=== PATIENT | male | born 1990 | race Two or more races ===

== ENCOUNTER 2019-05-11 02:15 | Emergency (ER) | payer SELFPAY ==
[~2019-05-11] VITALS: Ht 182.9 cm; Wt 63.5 kg
[2019-05-11 02:16] VITALS: Ht 182.9 cm; Wt 63.5 kg
[2019-05-11 03:56] LABS: BASOPHIL % 0.9 % (0-2); PLATELET COUNT 258 x10^3mcL (130-400)
[2019-05-11 04:13] LABS: CALCIUM 8.1 mg/dL (8.5-10.1); CARBON DIOXIDE 25.6 mmol/L (21-32); CHLORIDE SERUM 103 mmol/L (98-107); CREATININE SERUM 0.5 mg/dL (0.7-1.3); GFR1 > 60 mL/min; GLUCOSE SERUM 79 mg/dL (74-106); POTASSIUM SERUM 3.2 mmol/L (3.5-5.1); RED CELL DISTRIBUTION WIDTH 16.5 % (11.5-14.5); SODIUM SERUM 141 mmol/L (136-145)
[2019-05-11 04:36] LABS: ALBUMIN 3.7 g/dL (3.4-5.0); ALKALINE PHOSPHATASE 114 U/L (46-116); ALT/SGPT 28 U/L (16-63); AST/SGOT 54 U/L (15-37); BILIRUBIN TOTAL 0.73 mg/dL (0.20-1.00); TOTAL PROTEIN, SERUM 7.1 g/dL (6.4-8.2)
[2019-05-11 06:12] LABS: AMPHETAMINE QUAL UR POSITIVE (See below)
--- NOTE | 2019-05-11 09:28 | NUR ---
[facility] aware of patient. Will assist if needed.
[2019-05-11 11:31] VITALS: BP 115/88
== END 2019-05-11 13:19 | disposition left against medical advice (07) ==
LOC: ED 02:15
PROVIDERS: Emergency Medicine
DX: F15.90 Other stimulant use, unspecified, uncomplicated (principal); F41.9 Anxiety disorder, unspecified; F32.9 Major depressive disorder, single episode, unspecified; J45.909 Unspecified asthma, uncomplicated
CPT/HCPCS: 36415; G0480